=== PATIENT | male | born 1965 | race American Indian/Alaskan Native ===

== ENCOUNTER 2024-10-16 12:51 | Day surgery (SDC) | payer MEDICARE, MEDICAID, SELFPAY ==
--- OUTSIDE RECORDS SUMMARY | 2024-10-01 14:19 | XMS_ITS | Encounter Summary ---
Author Organization [employer] Address [address] [place] [address] 7 [place] [address] Care Team Providers Care Route Sales Associate Name Role Phone Unavailable Primary Care Provider Unavailabl e Encounter Details Date Type Department Care Team (Late st Contact Info) Description 10/03/2023 Telephone [facility] [address] [place] [address] Ayo Mckeon DDS [address] [place] [address] Social History Tobacco Use Types Packs/Day Years Used Date Smoking Tobacco: Never Smokeless Tobacco: Never Alcohol Use Standard Drinks/Week Comments Never 0 (1 standard drink = 0.6 oz pur e alcohol) Sex and Gender Information Value Date Recorded Sex Assigned at Male 05/24/2023 1:12 PM EST Legal Sex Male 1:09 PM EST Gender Identity Male 05/24/2023 1:12 PM EST Sexual Orientation Don't know 05/24/2023 1: 12 PM EST documented as of this encounter Miscellaneous Notes * Telephone Encounter - All Estrada - 10/03/2023 4:52 PM EDT Spoke with patient regarding documented in this encounter Plan of Treatment Not on file documented as of this encounter Visit Diagnoses Not on filedocumented in this encounter
[2024-10-09 11:53] VITALS: BMI 21.6
[2024-10-14 09:04] VITALS: BMI 21.6
[2024-10-16] VITALS (7 sets, daily range): BP systolic 107–128; BP diastolic 70–79; PULSE 79–91; RESP 16–18; TEMP 36.6–36.7; O2SAT 94–99; BMI 21.6
[2024-10-16 13:52] LABS: Glucose, Whole Blood 173 mg/dL (60-115)
[2024-10-16] MEDS: Lactated Ringers 1,000 ML 80 ML IVCONT (14:08)
--- NOTE | 2024-10-16 14:37 | HO.ANESPROP2 ---
Documented by User: Qiana Carter NP 10/15/24 13:03 HPI - Anesthesia Eval Consult details Narrative: 58yo M for Bilateral Lateral Rectus Eye Muscle Recession Medically optimized per PCP Follows [facility] for nonischemic CMP s/p ICD, chronic angina, Vtach, WPW, HTN/HLD. Last office visit 05/2024. Stable and continue regimen Wheelchair bound d/t post-polio syndrome Case reviewed by ALEX RN with DR Radha ANTON Past Medical History Medical History (Updated 10/14/24 @ 09:11 by Elena Fisher RN) Wheelchair dependent History of bone cancer Diabetes GERD (gastroesophageal reflux disease) Hx of intestinal obstruction Hx of ventricular tachycardia TMJ arthralgia ANTHONY (obstructive sleep apnea) Pulmonary hypertension PVD (peripheral vascular disease) Nontoxic single thyroid nodule History of skin cancer History of anemia Chronic pain of right groin ESBL (extended spectrum beta-lactamase) producing bacteria infection (2020) Dry eyes Chronic bacterial prostatitis BPH (benign prostatic hyperplasia) WPW (Qjude-Achictbcs-Zbeoc syndrome) Vitamin D deficiency Varicose vein of leg Type 1 diabetes mellitus Post-polio limb muscle weakness Polyneuropathy Pharyngoesophageal dysphagia Osteoporosis Non-ischemic cardiomyopathy Lumbar radiculopathy Liver hemangioma Insomnia Impotence of organic origin Implantable cardioverter-defibrillator (ICD) in situ (05/16/14) Essential hypertension Erosive esophagitis Dyslipidemia Dupuytren's contracture Diabetic polyneuropathy Diabetic foot ulcer Crohn's disease of ileum Common peroneal neuropathy Cataracts, bilateral Allergic rhinitis Surgical History Surgical History (Updated 10/09/24 @ 11:36 by Elena Fisher RN) History of surgery History of shoulder surgery History of phacoemulsification of cataract of right eye with intraocular lens implantation Hx of nasal septoplasty Hx of bilateral inguinal hernia repair Hx of hand surgery History of colon surgery Hx of appendectomy Social History Social History Are you a primary career orientation teacher to a significant other at home: No Do you presently have visiting nurse or other home services: Yes ([employer] 60 hours/week) Patient Tobacco Use Status: Former Tobacco user Tobacco use type: Cigarette Use of substances other than those prescribed or required for medical reasons: No Have you been hit, kicked, punched, or otherwise hurt by someone within the past year? If so, by whom?: No Are you DNR?: No Advance Directives: No Advance Directives Information Provided: Yes Advance Directives on File: No Poor oral hygiene: No Meds Allergies Allergy/AdvReac Type Severity Reaction Status Date / Time shellfish derived (shellfish) Allergy Severe Anaphylaxis Verified 10/10/24 11:23 latex Allergy Unknown Verified 10/09/24 11:38 Home Medications ?Medication ?Instructions ?Recorded ?Confirmed ?Last Taken ?Type Maalox Advanced 10/09/24 Unknown History acetaminophen 325 mg tablet 650 mg PO Q6H PRN Pain 10/09/24 10/09/24 Unknown History (Tylenol) adalimumab 40 mg/0.4 mL 40 mg subcut Q2W 10/09/24 10/09/24 Unknown History subcutaneous syringe kit aspirin 81 mg tablet 81 mg PO DAILY 10/09/24 10/09/24 Unknown History atorvastatin 20 mg tablet 20 mg PO BEDTIME 10/09/24 10/09/24 Unknown History azelastine 137 mcg (0.1 %) nasal 1 spray intranasal BID 10/09/24 10/09/24 Unknown History spray carvedilol 6.25 mg tablet 6.25 mg PO BID 10/09/24 10/09/24 Unknown History cholecalciferol (vitamin D3) 50 50 mcg PO DAILY 10/09/24 10/09/24 Unknown History mcg (2,000 unit) capsule fluticasone propionate 50 2 spray intranasal BID 10/09/24 10/09/24 Unknown History mcg/actuation nasal spray,suspension gabapentin 600 mg tablet 600 mg PO BEDTIME 10/09/24 10/09/24 Unknown History glucagon HCl 1 mg/mL solution for mg 10/09/24 10/09/24 Unknown History injection insulin lispro 100 unit/mL 125 unit subcut DAILY 10/09/24 10/09/24 Unknown History subcutaneous solution (Humalog U-100 Insulin) lactulose 10 gram/15 mL oral 15 ml PO Q12H PRN Abdominal 10/09/24 10/09/24 Unknown History solution Discomfort loperamide 2 mg capsule 4 mg PO Q6H PRN diarrhea 10/09/24 10/09/24 Unknown History magnesium oxide 250 mg PO BEDTIME 10/09/24 10/09/24 Unknown History nitroglycerin 400 mcg/spray PRN Chest Pain 10/09/24 Unknown History translingual omeprazole 40 mg capsule,delayed 40 mg PO BID 10/09/24 10/09/24 Unknown History release ondansetron 8 mg disintegrating 8 mg PO Q12H PRN nausea/vomiting 10/09/24 10/09/24 Unknown History tablet sacubitril 49 mg-valsartan 51 mg 1 tab PO BID 10/09/24 10/09/24 Unknown History tablet (Entresto) zolpidem 10 mg tablet 10 mg PO BEDTIME 10/09/24 10/09/24 Unknown History Exam Height,Weight and Vital Signs: Height 6 ft 3 in Weight 78.471 kg Pertinent Lab Results Pertinent Lab Results: CBC and BMP 09/2024 from outside facility [place] Narrative Narrative: EKG 05/2024 NSR @ 78 ICD interrogation 03/2024 VVI - 40 3 x NSVT, no therapy warranted Battery > 2 years Assessment and Plan Assessment Anesthesia Assessment: Chart Reviewed Documented by User: Mireya Garcia DO 10/16/24 14:38 HPI - Anesthesia Eval Consult details Narrative: 58yo M for Bilateral Lateral Rectus Eye Muscle Recession Medically optimized per PCP Follows [facility] for nonischemic CMP s/p ICD, chronic angina, Vtach, WPW, HTN/HLD. Last office visit 05/2024. Stable and continue regimen Wheelchair bound d/t post-polio syndrome EF 25-30% Case reviewed by ALEX LO with DR Garcia [facility] Past Medical History Medical History (Updated 10/14/24 @ 09:11 by Elena Fisher, TERESITA) Wheelchair dependent History of bone cancer Diabetes GERD (gastroesophageal reflux disease) Hx of intestinal obstruction Hx of ventricular tachycardia TMJ arthralgia ANTHONY (obstructive sleep apnea) Pulmonary hypertension PVD (peripheral vascular disease) Nontoxic single thyroid nodule History of skin cancer History of anemia Chronic pain of right groin ESBL (extended spectrum beta-lactamase) producing bacteria infection (2020) Dry eyes Chronic bacterial prostatitis BPH (benign prostatic hyperplasia) WPW (Impxe-Rlacxcnrk-Zsorl syndrome) Vitamin D deficiency Varicose vein of leg Type 1 diabetes mellitus Post-polio limb muscle weakness Polyneuropathy Pharyngoesophageal dysphagia Osteoporosis Non-ischemic cardiomyopathy Lumbar radiculopathy Liver hemangioma Insomnia Impotence of organic origin Implantable cardioverter-defibrillator (ICD) in situ (05/16/14) Essential hypertension Erosive esophagitis Dyslipidemia Dupuytren's contracture Diabetic polyneuropathy Diabetic foot ulcer Crohn's disease of ileum Common peroneal neuropathy Cataracts, bilateral Allergic rhinitis Family History Family history of problems with anesthesia: No Surgical History Surgical History (Updated 10/09/24 @ 11:36 by Elena Fisher RN) History of surgery History of shoulder surgery History of phacoemulsification of cataract of right eye with intraocular lens implantation Hx of nasal septoplasty Hx of bilateral inguinal hernia repair Hx of hand surgery History of colon surgery Hx of appendectomy History of Problems with Anesthesia: No Social History Social History Are you a primary career orientation teacher to a significant other at home: No Do you presently have visiting nurse or other home services: Yes ([employer] 60 hours/week) Patient Tobacco Use Status: Former Tobacco user Tobacco use type: Cigarette Use of substances other than those prescribed or required for medical reasons: No Have you been hit, kicked, punched, or otherwise hurt by someone within the past year? If so, by whom?: No Are you DNR?: No Advance Directives: No Advance Directives Information Provided: Yes Advance Directives on File: No Poor oral hygiene: No Meds Allergies Allergy/AdvReac Type Severity Reaction Status Date / Time shellfish derived (shellfish) Allergy Severe Anaphylaxis Verified 10/10/24 11:23 latex Allergy Unknown Verified 10/09/24 11:38 Home Medications ?Medication ?Instructions ?Recorded ?Confirmed ?Last Taken ?Type Maalox Advanced 10/09/24 Unknown History acetaminophen 325 mg tablet 650 mg PO Q6H PRN Pain 10/09/24 10/09/24 Unknown History (Tylenol) adalimumab 40 mg/0.4 mL 40 mg subcut Q2W 10/09/24 10/09/24 Unknown History subcutaneous syringe kit aspirin 81 mg tablet 81 mg PO DAILY 10/09/24 10/09/24 Unknown History atorvastatin 20 mg tablet 20 mg PO BEDTIME 10/09/24 10/09/24 Unknown History azelastine 137 mcg (0.1 %) nasal 1 spray intranasal BID 10/09/24 10/09/24 Unknown History spray carvedilol 6.25 mg tablet 6.25 mg PO BID 10/09/24 10/09/24 Unknown History cholecalciferol (vitamin D3) 50 50 mcg PO DAILY 10/09/24 10/09/24 Unknown History mcg (2,000 unit) capsule fluticasone propionate 50 2 spray intranasal BID 10/09/24 10/09/24 Unknown History mcg/actuation nasal spray,suspension gabapentin 600 mg tablet 600 mg PO BEDTIME 10/09/24 10/09/24 Unknown History glucagon HCl 1 mg/mL solution for mg 10/09/24 10/09/24 Unknown History injection insulin lispro 100 unit/mL 125 unit subcut DAILY 10/09/24 10/09/24 Unknown History subcutaneous solution (Humalog U-100 Insulin) lactulose 10 gram/15 mL oral 15 ml PO Q12H PRN Abdominal 10/09/24 10/09/24 Unknown History solution Discomfort loperamide 2 mg capsule 4 mg PO Q6H PRN diarrhea 10/09/24 10/09/24 Unknown History magnesium oxide 250 mg PO BEDTIME 10/09/24 10/09/24 Unknown History nitroglycerin 400 mcg/spray PRN Chest Pain 10/09/24 Unknown History translingual omeprazole 40 mg capsule,delayed 40 mg PO BID 10/09/24 10/09/24 Unknown History release ondansetron 8 mg disintegrating 8 mg PO Q12H PRN nausea/vomiting 10/09/24 10/09/24 Unknown History tablet sacubitril 49 mg-valsartan 51 mg 1 tab PO BID 10/09/24 10/09/24 Unknown History tablet (Entresto) zolpidem 10 mg tablet 10 mg PO BEDTIME 10/09/24 10/09/24 Unknown History Exam Exam Date and Time: 10/16/24 1435 Height,Weight and Vital Signs: Height 6 ft 3 in Weight 78.471 kg Vital Signs Temperature 98.0 F 10/16/24 13:31 Pulse Rate 82 10/16/24 13:31 Respiratory Rate 16 10/16/24 13:31 Blood Pressure 117/79 10/16/24 13:31 Pulse Oximetry 97 10/16/24 13:31 Oxygen Delivery Method Room Air 10/16/24 13:31 Temperature 98.0 F 10/16/24 13:31 Pulse Rate 82 10/16/24 13:31 Respiratory Rate 16 10/16/24 13:31 Blood Pressure 117/79 10/16/24 13:31 Pulse Oximetry 97 10/16/24 13:31 Oxygen Delivery Method Room Air 10/16/24 13:31 Airway Mallampati Class: II TM Dist: >3cm Neck ROM: Full Loose/Missing/Broken Teeth: Yes (a few missing teeth but nothing loose) Heart: S1S2 Lungs: CTAB Assessment and Plan Assessment Anesthesia Assessment: Anesthesia Plan Discussed and Chart Reviewed Final Anesthetic Review Family History of Problems with Anesthesia: No History of Problems with Anesthesia: No NPO: Yes ASA Class: IV Final Preanesthetic Review: No Changes in Pt Med Stat, Meds/Allgs Chart Reviewed, Consent Obtained/Reviewed and Anes Risks/Benef Reviewed Patient Risk: High Procedure Risk: Low Anesthetic Plan Anesthetic Plan: GA and Agree w/ Assess. and Plan Disposition: Standard PACU
--- NOTE | 2024-10-16 15:40 | HO.OPHTHAL ---
Ophthalmology Operative Note Date of Service: 10/16/24 Narrative: Diagnosis exotropia. Postoperative diagnosis same. Procedure bilateral lateral rectus recessions of [address] Elliott. Anesthesia general. Complications none. The patient was brought to the operative room placed under general anesthesia. The eyes were prepped and draped in the usual sterile ophthalmic fashion. A lid speculum was placed in the right eye and a a peritomy was created around the lateral rectus muscle. The muscle was hooked and secured with a double-armed Vicryl suture and disinserted from the globe. It was reattached to position 7 mm behind the original insertion. Conjunctiva was closed with interrupted Vicryl sutures. An identical procedure was then performed on the left eye. The patient was then awoken from general anesthesia and discharged to postoperative recovery in good condition.
[2024-10-16 16:12] LABS: Glucose, Whole Blood 118 mg/dL (60-115)
== END 2024-10-16 16:24 | disposition home or self-care (01) ==
PROVIDERS: Visit Provider Ophthalmology
PROC: (CPT 67311; principal; 2024-10-16 14:20)
DX: H50.15 Alternating exotropia (principal); E10.21 Type 1 diabetes mellitus with diabetic nephropathy; E10.42 Type 1 diabetes mellitus with diabetic polyneuropathy; Z96.41 Presence of insulin pump (external) (internal); I10 Essential (primary) hypertension; I42.8 Other cardiomyopathies; I45.6 Pre-excitation syndrome; G14 Postpolio syndrome; Z99.3 Dependence on wheelchair; M62.81 Muscle weakness (generalized); I73.9 Peripheral vascular disease, unspecified; G47.33 Obstructive sleep apnea (adult) (pediatric); Z99.89 Dependence on other enabling machines and devices; Z79.4 Long term (current) use of insulin; Z79.620 Long term (current) use of immunosuppressive biologic; Z79.899 Other long term (current) drug therapy; Z79.82 Long term (current) use of aspirin; Z91.040 Latex allergy status; Z87.891 Personal history of nicotine dependence; Z98.890 Other specified postprocedural states
CPT/HCPCS: 67311; 82947; J1100; J2003; J2250; J2405; J2704; J3010